=== PATIENT | female | born 1970 | race African-American/Black ===

== ENCOUNTER 2024-08-19 10:44 | Emergency (ER) | payer MEDICAID, OTHER ==
--- NOTE | 2024-08-19 11:31 | ED.PDOC ---
Back pain HPI HPI Comments A 53 YEAR OLD FEMALE PRESENTS TO THE ED WITH COMPLAINT OF RIGHT-SIDED LOWER BACK PAIN. PATIENT STATES SHE HAS BEEN EXPERIENCING RIGHT-SIDED LOWER BACK PAIN THAT RADIATES DOWN HER RIGHT LEG OFF AND ON FOR THE PAST 1 YEAR WITH WORSENING PAIN OVER THE PAST 3 DAYS. PATIENT DENIES SADDLE ANESTHESIA, URINARY INCONTINENCE, BOWEL INCONTINENCE, DYSURIA, HEMATURIA, FEVER, CHILLS, SHORTNESS OF BREATH, CHEST PAIN, ABDOMINAL PAIN, NAUSEA, VOMITING, HEADACHE, OR OTHER COMPLAINTS. NO OTHER SYMPTOMS OR MODIFYING FACTORS AT THIS TIME. PATIENT IS ALERT, ORIENTED X 4, AND HAS STEADY GAIT. Chief Complaint: Back Pain Time Seen by MD: 10:52 Reviewed Notes: Nurses Notes, Medications, Allergies Allergies: Coded Allergies: NO KNOWN ALLERGIES (Unverified , 08/19/24) Home Meds Active Scripts Tramadol HCl (Tramadol HCl) 50 Mg Tab, 50 MG PO TID, #20 TAB Prov:HIRAL MURPHY 08/19/24 Prednisone (Prednisone) 20 Mg Tab, 40 MG PO BID, #20 TAB Prov:HIRAL MURPHY 08/19/24 Information Source: Patient Mode of Arrival: Ambulatory Timing: Days Duration: Since onset, Days Location of Back pain: (B) Lumbar Radiates to: Anterior: (R) Buttocks, (R) Calf, (R) Thigh Radiates to: Posterior: (R) Buttocks, (R) Calf, (R) Thigh Radiates to: Medial: (R) Buttocks, (R) Calf, (R) Thigh Radiates to: Lateral: (R) Buttocks, (R) Calf, (R) Thigh Severity: Moderate Prehospital treatment: None Quality: Aching, Cramping Onset: Spontaneous History of: Chronic Back Pain Modifying Factors: Movement Associated signs and symptoms: None Past Medical History Past Medical History (Other): chronic sciatica Surgical History: Denies all surgeries DRIVER SUPERVISOR History: No Pertinent DRIVER SUPERVISOR History Family History Family History: Reviewed,noncontributory to illness Social History Smoker: Cigarettes Alcohol: Denies ETOH Use Drugs: Denies Drug Use Lives In: Home Constitutional: denies: chills, diaphoresis, fatigue, fever, malaise, sweats, weakness, others EENTM: denies: blurred vision, double vision, ear bleeding, ear discharge, ear drainage, ear pain, ear ringing, eye pain, eye redness, hearing loss, mouth pain, mouth swelling, nasal discharge, nose bleeding, nose congestion, nose pain, photophobia, tearing, throat pain, throat swelling, voice changes, others Respiratory: denies: cough, hemoptysis, orthopnea, SOB at rest, shortness of breath, SOB with excertion, stridor, wheezing, others Cardiovascular: denies: chest pain, dizzy spells, diaphoresis, Dyspnea on exertion, edema, irregular heart beat, left arm pain, lightheadedness, palpitat ions, PND, syncope, others Gastrointestinal: denies: abdomen distended, abdominal pain, blood streaked bow els, constipated, diarrhea, dysphagia, difficulty swallowing, hematemesis, melena, nausea, poor appetite, poor fluid intake, rectal bleeding, rectal pain, vomiting, others Genitourinary: denies: abnormal vagina bleeding, burning, dyspareunia, dysuria, flank pain, frequency, hematuria, incontinence, pain, , vagina discharge, urgency, others Neurological: denies: dizziness, fainting, headache, left sided numbness, left sided weakness, numbness, paresthesia, pre-existing deficit, right sided numbness, right sided weakness, seizure, speech problems, tingling, tremors, weakness, others Musculoskeletal: reports: back pain (LOWER BACK PAIN THAT RADIATES DOWN RIGHT LEG), muscle pain; denies: gout, joint pain, joint swelling, muscle stiffness, neck pain, others Integumetry: denies: bruises, change in color, change in hair/nails, dryness, laceration, lesions, lumps, rash, wounds, others Allergic/Immunocompromised: denies: Difficulty Healing, Frequent Infections, Hives, Itching, others Hematologic/Lymphatic: denies: anemia, blood clots, easy bleeding, easy bruising, swollen glands, others Endocrine: denies: excessive hunger, excessive sweating, excessive thirst, excessive urination, flushing, intolerance to cold, intolerance to heat, unexplained weight gain, unexplained weight loss, others Psychiatric: denies: anxiety, bipolar disorder, depression, hopeless, panic disorder, schizophrenia, sleepless, suicidal, others All Other Systems: Reviewed and Negative Physical Exam General Appearance: No Apparent Distress, Normal HEENT: Normal ENT Inspection, PERRL/EOMI, Pharynx Normal, TMs Normal Neck: Full Range of Motion, Non-Tender, Normal, Normal Inspection Respiratory: Chest Non-Tender, Lungs Clear, No Accessory Muscle Use, No Respiratory Distress, Normal Breath Sounds Cardiovascular: No Edema, No JVD, No Murmur, No Gallop, Normal Peripheral Pulses, Regular Rate/Rhythm Breast Exam: Deferred Gastrointestinal: No Organomegaly, Non Tender, No Pulsatile Mass, Normal Bowel Sounds, Soft Genitalia: Deferred Pelvic: Deferred Rectal: Deferred Extremities: No calf tenderness, Normal capillary refill, Normal inspection, Normal range of motion, Non-tender, No pedal edema Musculoskeletal : Location: Bilateral Extremity Location: Back Apperance: Tenderness (AND MUSCLE TIGHTNESS ON LOWER BACK, NO BONY TENDERNESS, SWELLING AND DEFORMITY. ) Neurologic: Alert, biomedical engineering technician II-XII nml as Tested, No Motor Deficits, Normal Affect, Normal Mood, No Sensory Deficits Cerebellar Function: Normal Reflexes: Normal Skin: Dry, Normal Color, Warm Peripheral Pulses: 2+ carotid (R), 2+ carotid (L), 2+ dorsalis pedis (R), 2+ dorsalis pedis (L) Lymphatic: No Adenopathy Was a procedure done? Was a procedure done?: No Back Pain Differential Dx Differential Diagnosis: DJD, Musculoskeletal Pain, Strain Other Differential Diagnosis DDD, LUMBAR RADCULOPATHY X-Ray, Labs, Meds, VS Vital Signs Date Time Temp Pulse Resp B/P (MAP) Pulse Ox O2 Delivery O2 Flow Rate FiO2 08/19/24 12:03 98.4 66 19 118/71 (87) 100 98.4 08/19/24 12:03 66 19 100 Room Air 08/19/24 10:54 98.3 80 16 116/77 (90) 99 98.3 Current Medications Medications (Trade) Dose Ordered Sig/Ariel Route Start Time Stop Time Status Last Admin Ketorolac Tromethamine (Toradol Injection) 60 mg ONCE ONCE IM 08/19/24 11:30 08/19/24 11:31 DC 08/19/24 12:00 EXAM: XY LUMBAR SPINE 3 VIEW HISTORY: LOW BACK PAIN TO RIGHT LOWER LEG COMPARISON: None TECHNIQUE: AP and lateral views of the lumbar spine were performed. FINDINGS: No fracture or listhesis of the lumbar spine. There is minimal lumbar levoscoliosis. There is mild degenerative disc disease and facet arthropathy. IMPRESSION: Mild degenerative changes of the lumbar spine without evidence of fracture. ATED BY: TATI HANEY MD DICTATED DATE/TIME: 08/19/240 SIGNED BY: TATI HANEY MD SIGNED DATE/TIME: 08/19/240 CC: X-Ray, Labs, Meds, VS Comment EXTERNAL MEDICAL RECORDS REVIEWED: [NONE] INDEPENDENT HISTORIANS: [NONE] SOCIAL DETERMINANTS OF HEALTH: [NONE] LABS ORDERED: NONE REVIEWED AND INTERPRETED RESULTS: NONE IMAGING ORDERED: XR L-SPINE TREATMENTS ORDERED: TORADOL 60MG IM PROCEDURES PERFORMED: NONE CRITICAL CARE TIME: NONE I HAVE DISCUSSED THE PATIENT WITH THE ATTENDING PHYSICIAN DR. POWELL AND HE AGREES WITH THE PATIENT'S PLAN OF CARE AND DISPOSITION. BASED ON HISTORY OF PRESENT ILLNESS, AND PHYSICAL EXAM, PATIENT WILL BE DISCHARGED HOME. DISCUSSED PLAN FOR DISCHARGE HOME WITH RX [ULTRAM]. MEDICATION WARNINGS GIVEN. SHARED DECISION MAKING: PATIENT INSTRUCTED TO FOLLOW UP WITH PRIMARY CARE PROVIDER IN 1-2 DAYS FOR RE-EVALUATION OF SYMPTOMS. PATIENT VERBALIZES UNDERSTANDING TO RETURN TO ED FOR NEW OR WORSENING SYMPTOMS OR IF FOLLOW UP WITH PCP CANNOT BE OBTAINED. PATIENT FEELS COMFORTABLE GOING HOME AT THIS TIME. ALL QUESTIONS ADDRESSED AT TIME OF DISCHARGE. Images Reviewed?: Images reviewed and evaluated by me Time of 1ST Reevaluation: 12:52 Reevaluation 1ST: Improved Patient Education/Counseling: Diagnosis, Treatment, Need For Follow Up Family Education/Counseling: Diagnosis, Treatment, Need For Follow Up Medical Screening: No EMC Exist At This Time SEPSIS Sepsis Screen Physician Orders Lumbar Spine 3 View (08/19/24 11:17) Vital Signs Date Time Temp Pulse Resp B/P (MAP) Pulse Ox O2 Delivery O2 Flow Rate FiO2 08/19/24 12:03 98.4 66 19 118/71 (87) 100 98.4 08/19/24 12:03 66 19 100 Room Air 08/19/24 10:54 98.3 80 16 116/77 (90) 99 98.3 Medications Medications Dose Ordered Sig/Ariel Route Start Time Stop Time Status Last Admin Dose Admin Ketorolac Tromethamine 60 mg ONCE ONCE IM 08/19/24 11:30 08/19/24 11:31 DC 08/19/24 12:00 Departure 1 Departure Time of Disposition: 13:00 Impression: Primary Impression: DDD (degenerative disc disease), lumbar Qualified Codes: M51.362 - Other intervertebral disc degeneration, lumbar region with discogenic back pain and lower extremity pain Additional Impression: Lumbar radiculopathy Disposition: HOME / SELF CARE / HOMELESS Condition: Stable Additional Instructions: FOLLOW-UP WITH PCP IN 1 TO 2 DAYS. TAKE MEDICATIONS PRESCRIBED. RETURN TO ED FOR ANY NEW OR WORSENING SYMPTOMS. e-Prescriptions Tramadol HCl (Tramadol HCl) 50 Mg Tab 50 MG PO TID, #20 TAB Prov: HIRAL MURPHY 08/19/24 Prednisone (Prednisone) 20 Mg Tab 40 MG PO BID, #20 TAB Prov: HIRAL MURPHY 08/19/24 Discharged With: Self Critical Care Note Critical Care Time?: No Stability Stability form required: No I personally scribed for HIRAL MURPHY ([email or web address]) on 08/19/24 at 11:31. Electronically submitted by Juan C Andrews ([email or web address]). I personally scribed for HIRAL MURPHY ([email or web address]) on 08/19/24 at 12:47. Electronically submitted by Juan C Andrews ([email or web address]). HIRAL MURPHY Aug 19, 2024 11:31
[2024-08-19] MEDS: KETOROLAC TROMETH 60MG/2ML VIAL IM ONE (12:00)
[2024-08-19 12:03] VITALS: BP 118/71; PULSE 66; RESP 19; TEMP 98.4; O2SAT 100
--- NOTE | 2024-08-19 12:23 | DVH ---
EXAM: XY LUMBAR SPINE 3 VIEW HISTORY: LOW BACK PAIN TO RIGHT LOWER LEG COMPARISON: None TECHNIQUE: AP and lateral views of the lumbar spine were performed. FINDINGS: No fracture or listhesis of the lumbar spine. There is minimal lumbar levoscoliosis. There is mild degenerative disc disease and facet arthropathy. IMPRESSION: Mild degenerative changes of the lumbar spine without evidence of fracture.
[2024-08-19] MEDS ORDERED: TRAM-626 PO (12:49)
[2024-08-19] MEDS ORDERED: PRED20TA2 PO (12:49)
== END 2024-08-19 12:52 | disposition home or self-care (01) ==
LOC: ER 10:44
DX: M51.372 Other intervertebral disc degeneration, lumbosacral region with discogenic back pain and lower extremity pain (principal); M54.16 Radiculopathy, lumbar region; F17.210 Nicotine dependence, cigarettes, uncomplicated; G89.29 Other chronic pain; Z79.52 Long term (current) use of systemic steroids; Z79.899 Other long term (current) drug therapy
CPT/HCPCS: 72100; 96372; 99283; J1885

== ENCOUNTER 2025-01-24 11:59 | Inpatient (IN) | payer OTHER ==
[~2025-01-24] VITALS: Ht 185.4 cm; Wt 64.0 kg
[~2025-01-24 11:59] MED LIST: PRED20TA2 PO; TRAM-626 PO
--- NOTE | 2025-01-24 12:22 | ED.PDOC ---
History of Present Illness HPI Comments 54-year-old female presents to the ER with prior medical history of chronic sciatica: Surgical history of left knee surgery and a chief complaint of abdominal pain. Patient reports on having had right lower quadrant pain which radiates to the back associated with posterior right shoulder pain since Thursday of 01/20/2025. Denies any other symptoms at this time. Denies chills, fever, N/V/D, SOB, CP. No other associated symptoms, modifiers, recent injuries or sick contacts present at this time. Chief Complaint: Abdominal Pain Time Seen by MD: 12:15 Reviewed Notes: Nurses Notes, Medications, Allergies Allergies: Coded Allergies: NO KNOWN ALLERGIES (Unverified , 08/19/24) Home Meds Active Scripts Tramadol HCl (Tramadol HCl) 50 Mg Tab, 50 MG PO TID, #20 TAB Prov:HIRAL MURPHY 08/19/24 Prednisone (Prednisone) 20 Mg Tab, 40 MG PO BID, #20 TAB Prov:HIRAL MURPHY 08/19/24 Information Source: Patient Mode of Arrival: Ambulatory Severity: Moderate Timing: Days Duration: Since onset, Days Prehospital treatment: None Past Medical History Past Medical History (Other): Chronic sciatica Surgical History (Other): Left knee surgery GROUNDWATER PROGRAMS DIRECTOR History: No Pertinent GROUNDWATER PROGRAMS DIRECTOR History Family History Family History: Reviewed,noncontributory to illness Social History Smoker: Cigarettes Alcohol: Occasionally Drugs: Denies Drug Use Lives In: Home Constitutional: denies: chills, diaphoresis, fatigue, fever, malaise, sweats, weakness, others EENTM: denies: blurred vision, double vision, ear bleeding, ear discharge, ear drainage, ear pain, ear ringing, eye pain, eye redness, hearing loss, mouth pain, mouth swelling, nasal discharge, nose bleeding, nose congestion, nose pain, photophobia, tearing, throat pain, throat swelling, voice changes, others Respiratory: denies: cough, hemoptysis, orthopnea, SOB at rest, shortness of breath, SOB with excertion, stridor, wheezing, others Cardiovascular: denies: chest pain, dizzy spells, diaphoresis, Dyspnea on exertion, edema, irregular heart beat, left arm pain, lightheadedness, palpitations, PND, syncope, others Gastrointestinal: reports: abdominal pain; denies: abdomen distended, blood streaked bowels, constipated, diarrhea, dysphagia, difficulty swallowing, hematemesis, melena, nausea, poor appetite, poor fluid intake, rectal bleeding, rectal pain, vomiting, others Genitourinary: denies: abnormal vagina bleeding, burning, dyspareunia, dysuria, flank pain, frequency, hematuria, incontinence, pain, , vagina discharge, urgency, others Neurological: denies: dizziness, fainting, headache, left sided numbness, left sided weakness, numbness, paresthesia, pre-existing deficit, right sided numbness, right sided weakness, seizure, speech problems, tingling, tremors, weakness, others Musculoskeletal: reports: back pain; denies: gout, joint pain, joint swelling, muscle pain, muscle stiffness, neck pain, others Integumetry: denies: bruises, change in color, change in hair/nails, dryness, laceration, lesions, lumps, rash, wounds, others Allergic/Immunocompromised: denies: Difficulty Healing, Frequent Infections, Hives, Itching, others Hematologic/Lymphatic: denies: anemia, blood clots, easy bleeding, easy bruising, swollen glands, others Endocrine: denies: excessive hunger, excessive sweating, excessive thirst, excessive urination, flushing, intolerance to cold, intolerance to heat, unexplained weight gain, unexplained weight loss, others Psychiatric: denies: anxiety, bipolar disorder, depression, hopeless, panic disorder, schizophrenia, sleepless, suicidal, others All Other Systems: Reviewed and Negative Physical Exam General Appearance: Moderate Distress HEENT: Normal ENT Inspection, Pharynx Normal, TMs Normal Neck: Full Range of Motion, Non-Tender, Normal, Normal Inspection Respiratory: Chest Non-Tender, Lungs Clear, No Accessory Muscle Use, No Respiratory Distress, Normal Breath Sounds Cardiovascular: No Edema, No JVD, No Murmur, No Gallop, Normal Peripheral Pulses, Regular Rate/Rhythm Breast Exam: Deferred Gastrointestinal: No Organomegaly, No Pulsatile Mass, Normal Bowel Sounds, RLQ, RUQ, Soft, Tenderness Genitalia: Deferred Pelvic: Deferred Rectal: Deferred Extremities: No calf tenderness, Normal capillary refill, Normal inspection, Normal range of motion, Non-tender, No pedal edema Musculoskeletal : Apperance: Normal Neurologic: Alert, spooler rubber strand II-XII nml as Tested, Motor Weakness, Normal Affect, Normal Mood, No Sensory Deficits Cerebellar Function: Normal Reflexes: Normal Skin: Dry, Normal Color, Warm Lymphatic: No Adenopathy Was a procedure done? Was a procedure done?: No Differential Dx Considerations may include: Cholecystitis, cholelithiasis, gastritis, bowel obstruction X-Ray, Labs, Meds, VS Vital Signs Date Time Temp Pulse Resp B/P (MAP) Pulse Ox O2 Delivery O2 Flow Rate FiO2 01/24/25 13:34 98.2 101 18 115/68 (84) 94 98.2 01/24/25 12:02 98.0 97 16 115/73 98 98.0 Lab Test 01/24/25 13:11 01/24/25 12:48 Range/Units Urine Color Yellow Yellow Urine Clarity Turbid H Clear Urine pH 5.5 5.0-9.0 Urine Specific [place] 1.014 1.001-1.035 Urine Protein Negative Negative Urine Ketones Negative Negative Urine Blood Negative Negative /uL Urine Nitrite Negative Negative Urine Bilirubin Negative Negative Urine Urobilinogen Normal Negative mg/dL Urine Leukocyte Esterase Negative Negative /uL Urine RBC 1 0 - 4 /hpf Urine Microscopic WBC 2 0-5 /HPF Urine Squamous Epithelial Cells Mod <5 /hpf Urine Bacteria Few H None Seen /hpf Urine Glucose Normal Normal mg/dL White Blood Count 4.9 4.4-10.8 10^3/uL Red Blood Count 4.20 4.0-5.20 10^6/uL Hemoglobin 12.2 12.2-16.2 g/dL Hematocrit 36.6 36.0-46.0 % Mean Corpuscular Volume 87.0 80.0-100.0 fL Mean Corpuscular Hemoglobin 29.1 28.0-32.0 pg Mean Corpuscular Hemoglobin Concent 33.4 32.0-36.0 g/dL Red Cell Distribution Width 14.8 H 11.8-14.3 % Platelet Count 293 140-450 10^3/uL Mean Platelet Volume 7.0 6.9-10.8 fL Neutrophils (%) (Auto) 40.8 37.0-80.0 % Lymphocytes (%) (Auto) 50.5 H 10.0-50.0 % Monocytes (%) (Auto) 4.4 0.0-12.0 % Eosinophils (%) (Auto) 1.4 0.0-7.0 % Basophils (%) (Auto) 2.9 H 0.0-2.0 % Neutrophils # (Auto) 2.0 1.6-8.6 10 ^3/uL Lymphocytes # (Auto) 2.4 0.4-5.4 10 ^3/uL Monocytes # (Auto) 0.2 0-1.3 10 ^3/uL Eosinophils # (Auto) 0.1 0-0.8 10 ^3/uL Basophils # (Auto) 0.1 0-0.2 10 ^3/uL Nucleated Red Blood Cells 0.1 % Sodium Level 141 136-145 mmol/L Potassium Level 4.0 3.5-5.1 mmol/L Chloride Level 108 H 98-107 mmol/L Carbon Dioxide Level 25 20-31 mmol/L Anion Gap 8 5-15 Blood Urea Nitrogen 6 L 9-23 mg/dL Creatinine 0.84 0.550-1.02 mg/dL Glomerular Filtration Rate Calc 84 >90 mL/min BUN/Creatinine Ratio 7.1 L 10.0-20.0 Serum Glucose 73 L 74-106 mg/dL Calcium Level 9.4 8.7-10.4 mg/dL Total Bilirubin 0.3 0.2-1.0 mg/dL Aspartate Amino Transferase (AST) 29 13-40 U/L Alanine Aminotransferase (ALT) 23 7-40 U/L Alkaline Phosphatase 62 46-116 U/L Total Protein 7.0 5.7-8.2 g/dL Albumin 4.3 3.2-4.8 g/dL Lipase 38 12-53 U/L The patient's CBC is within normal limits The chemistry panel is within normal limits. At this time, the urine test is negative The CAT scan of the abdomen and pelvis shows: IMPRESSION: 1. No hydronephrosis or nephroureterolithiasis. 2. Air-fluid levels within the ascending to transverse colon. 3. Correlate with clinical exam to exclude colitis. 4. Extensive subchondral cystic change of the qjyrq-hcfgfka-cylo-left hip joints primarily involving the right femoral head. We still do not have a reason for this patient is significant abdominal pain The patient will be admitted at this time Images Reviewed?: Images reviewed and evaluated by me Time of 1ST Reevaluation: 12:45 Reevaluation 1ST: Unchanged Patient Education/Counseling: Diagnosis, Treatment, Prognosis Family Education/Counseling: No Family Present SEPSIS Sepsis Screen Date sepsis recognized/suspect: Jan 24, 2025 Time Sepsis recognized/suspect: 1205 Recent Procedure: No On Antibiotic Therapy: No Respiratory Rate >20: No Heart Rate >90: Yes Temp<36 C (96.8 F) or >38.3 C: No SBP <90 or MAP <65 mmHG: No New Acute Mental Status Change: No Is the patient on CPAP, BIPAP,: No Physician Orders Ct Ab Pel Wo Con-No Oral Or Iv (01/24/25 12:19) Vital Signs Date Time Temp Pulse Resp B/P (MAP) Pulse Ox O2 Delivery O2 Flow Rate FiO2 01/24/25 13:34 98.2 101 18 115/68 (84) 94 98.2 01/24/25 12:02 98.0 97 16 115/73 98 98.0 Laboratory Tests Test 01/24/25 12:48 White Blood Count 4.9 10^3/uL (4.4-10.8) Departure 1 Departure Time of Disposition: 15:45 Impression: Primary Impression: Intractable abdominal pain Additional Impression: Abdominal pain of unknown etiology Disposition: 09 ADMITTED INPATIENT Admit to: Med Surg Condition: Fair Critical Care Note Critical Care Time?: No Stability Stability form required: Yes Unstable for transfer: ED Physician Assesment (Clinical assesment) Heart Score Heart Score: Heart Score Response (Comments) Value History N/A 0 EKG N/A 0 Age N/A 0 Risk Factors N/A 0 Troponin N/A 0 Total 0 I personally scribed for DAMARIS LIRA MD ([email or web address]) on 01/24/25 at 12:21. Electronically submitted by Kirk Dior ([email or web address]). DAMARIS LIRA MD Jan 24, 2025 12:21
[2025-01-24 13:00] LABS: Hematocrit 36.6 % (36.0-46.0); Hemoglobin 12.2 g/dL (12.2-16.2); Mean Corpuscular Hemoglobin 29.1 pg (28.0-32.0); Mean Corpuscular Volume 87.0 fL (80.0-100.0); Nucleated Red Blood Cells % 0.1 %
[2025-01-24 13:15] LABS: Alanine Aminotransferase 23 U/L (7-40); Albumin 4.3 g/dL (3.2-4.8); Alkaline Phosphatase 62 U/L (46-116); Anion Gap 8 (5-15); BUN/Creatinine Ratio 7.1 (10.0-20.0); Bilirubin, Total 0.3 mg/dL (0.2-1.0); Calcium 9.4 mg/dL (8.7-10.4); Carbon Dioxide 25 mmol/L (20-31); Potassium 4.0 mmol/L (3.5-5.1); Sodium 141 mmol/L (136-145); Total Protein 7.0 g/dL (5.7-8.2)
[2025-01-24 13:20] LABS: Blood Urea Nitrogen 6 mg/dL (9-23); Chloride 108 mmol/L (98-107); Glucose 73 mg/dL (74-106)
[2025-01-24 13:34] LABS: Lipase 38 U/L (12-53)
[2025-01-24 13:35] LABS: Urine Protein, UAD Negative (Negative)
--- NOTE | 2025-01-24 13:43 | DVH ---
EXAM: CT CT AB PEL WO CON-NO ORAL OR IV INDICATION: right sided pain TECHNIQUE: Volumetric multidetector CT images of the abdomen and pelvis were obtained without contrast. All CT scans at this facility use dose modulation, iterative reconstruction, and/or weight based dosing when appropriate to reduce radiation dose to as low as reasonably achievable. COMPARISON: None FINDINGS: [LOWER CHEST]: The partially visualized lung bases are clear without a pleural effusion. The cardiac size is normal without pericardial effusion. [LIVER]: Normal hepatic size without suspicious focal lesion. [GALLBLADDER AND BILIARY TREE]: No cholelithiasis. [SPLEEN]: Unremarkable. [PANCREAS]: Unremarkable. [ADRENAL GLANDS]: Unremarkable [KIDNEYS]: No hydronephrosis. No nephroureterolithiasis. No suspicious focal lesion. [BLADDER]: Unremarkable for the degree distention. [REPRODUCTIVE ORGANS]: Unremarkable. [BOWEL/MESENTERY]: Stomach is normal. Normal appendix measuring 0.4 cm. Air- fluid levels within the ascending to transverse colon. Correlate with clinical exam to exclude colitis. No CT evidence of bowel obstruction. [ASCITES]: Trace pelvic ascites. [LYMPHADENOPATHY]: No pathologically enlarged lymph nodes by CT size criteria [VASCULATURE]: No aneurysmal dilatation. [ABDOMINAL WALL]: Unremarkable. [MUSCULOSKELETAL]: No acute fracture or aggressive focal osseous lesion. Extensive subchondral cystic change of the tlban-jibkbgz-wmhu-left hip joints primarily involving the right femoral head. IMPRESSION: 1. No hydronephrosis or nephroureterolithiasis. 2. Air-fluid levels within the ascending to transverse colon. 3. Correlate with clinical exam to exclude colitis. 4. Extensive subchondral cystic change of the uainq-fydfivl-gpgi-left hip joints primarily involving the right femoral head.
[2025-01-24] MEDS ORDERED: DOCUSATE SOD 100 MG CAP PO PRN (16:00)
[2025-01-24] MEDS ORDERED: ONDANSETRON HCL 4 MG/2 ML VIAL IV PRN (16:00)
[2025-01-24] MEDS ORDERED: MORPHINE SULFATE 4 MG/ML SYR/VIAL IV PRN (16:15)
--- NOTE | 2025-01-24 16:19 | DVHHPRES ---
History of Present Illness Resident Creating Document: LISBETH SADLER RESIDENT History of Present Illness Jackie Rosenbaum, A 54-year-old active smoker female with a history of chronic sciatica and prior left knee surgery presents ambulatory to the ER with moderate right lower quadrant abdominal pain radiating to the back and posterior right shoulder since 01/20/2025, denies fever, chills, nausea, vomiting, diarrhea, chest pain, shortness of breath, recent injuries, or sick contacts. PMHx: Chronic sciatica, osteoarthritis PSHx: Left knee surgery, arthroplasty Family history: Reviewed, noncontributory to illness Social history: Patient smokes cigarettes, drinks alcohol occasionally, denies illicit drug use, and lives at home. OBGYN Hx: postmenopausal, otherwise insignificant, noncontributory to the illness likely. Review of Systems Constitutional: Yes: Chills; No: Fever, Sweats, Weakness, Malaise, Other Eyes: No: Pain, Vision change, Conjunctivae inflammation, Eyelid inflammation, Other, Redness ENT: No: Ear pain, Ear discharge, Nose pain, Nose discharge, Nose congestion, Mouth pain, Mouth swelling, Throat pain, Throat swelling, Other Respiratory: No: Cough, Dry, Shortness of breath, SOB with excertion, Wheezing, Hemoptysis, Pleuritic Pain, Sputum, Wheezing, Other Cardiovascular: No: Chest Pain, Palpitations, Orthopnea, Paroxysmal Noc. Dyspnea, Edema, Lt Headedness, Other Gastrointestinal: Nausea, Abdominal Pain, Constipation; No: Vomiting, Diarrhea, Melena, Hematochezia, Other Genitourinary: No Dysuria, No Frequency, No Incontinence, No Hematuria, No Retention, No Other Musculoskeletal: No: other, neck pain, shoulder pain, arm pain, back pain, hand pain, leg pain, foot pain Skin: No: Rash, Lesions, Jaundice, Bruising, Other Neurological: No: Weakness, Numbness, Incoordination, Change in speech, Confusion, Seizures, Other Allergies: Coded Allergies: NO KNOWN ALLERGIES (Unverified , 08/19/24) Medications Current Medications Medications Dose Ordered Sig/Ariel Route Start Time Stop Time Status Last Admin Dose Admin Acetaminophen/ Hydrocodone Bitart 1 tab Q4HP PRN PO 01/24/25 16:00 Ondansetron HCl 4 mg Q4HP PRN IV 01/24/25 16:00 Docusate Sodium 100 mg BIDPRN PRN PO 01/24/25 16:00 Acetaminophen 650 mg Q6HP PRN PO 01/24/25 16:00 Morphine Sulfate 2 mg Q4HPRN PRN IV 01/24/25 16:15 Exam Vital Signs Vital Signs Date Time Temp Pulse Resp B/P (MAP) Pulse Ox O2 Delivery O2 Flow Rate FiO2 01/24/25 16:14 98.0 98 18 115/72 (86) 96 98.0 General Appearance: Alert, Oriented X3, Cooperative, moderate distress HEENT: Atraumatic, PERRLA, EOMI, Other (dry mucosa) Respiratory: Clear to auscultation, Normal air movement Cardiovascular: Regular rate, Normal S1, Normal S2, No murmurs Abdominal: Soft, No masses, Other (slow transit BS, right and left Lower quadrents tender. no cardboard rigidity, tympanic abdomen. ) Extremities: No clubbing, No cyanosis, No edema, Normal pulses, No tenderness/swelling Skin: No rashes, No breakdown, No significant lesion Neuro: Normal speech, Strength at 5/5 X4 ext, Normal tone, Sensation intact, Cranial nerves 3-12 NL, Other (deferred gait and reflex testing. ) Psych/Mental Status: Mental status NL, Mood NL Labs/Xrays Labs Test 01/24/25 13:11 01/24/25 12:48 Range/Units Urine Color Yellow Yellow Urine Clarity Turbid H Clear Urine pH 5.5 5.0-9.0 Urine Specific [place] 1.014 1.001-1.035 Urine Protein Negative Negative Urine Ketones Negative Negative Urine Blood Negative Negative /uL Urine Nitrite Negative Negative Urine Bilirubin Negative Negative Urine Urobilinogen Normal Negative mg/dL Urine Leukocyte Esterase Negative Negative /uL Urine RBC 1 0 - 4 /hpf Urine Microscopic WBC 2 0-5 /HPF Urine Squamous Epithelial Cells Mod <5 /hpf Urine Bacteria Few H None Seen /hpf Urine Glucose Normal Normal mg/dL White Blood Count 4.9 4.4-10.8 10^3/uL Red Blood Count 4.20 4.0-5.20 10^6/uL Hemoglobin 12.2 12.2-16.2 g/dL Hematocrit 36.6 36.0-46.0 % Mean Corpuscular Volume 87.0 80.0-100.0 fL Mean Corpuscular Hemoglobin 29.1 28.0-32.0 pg Mean Corpuscular Hemoglobin Concent 33.4 32.0-36.0 g/dL Red Cell Distribution Width 14.8 H 11.8-14.3 % Platelet Count 293 140-450 10^3/uL Mean Platelet Volume 7.0 6.9-10.8 fL Neutrophils (%) (Auto) 40.8 37.0-80.0 % Lymphocytes (%) (Auto) 50.5 H 10.0-50.0 % Monocytes (%) (Auto) 4.4 0.0-12.0 % Eosinophils (%) (Auto) 1.4 0.0-7.0 % Basophils (%) (Auto) 2.9 H 0.0-2.0 % Neutrophils # (Auto) 2.0 1.6-8.6 10 ^3/uL Lymphocytes # (Auto) 2.4 0.4-5.4 10 ^3/uL Monocytes # (Auto) 0.2 0-1.3 10 ^3/uL Eosinophils # (Auto) 0.1 0-0.8 10 ^3/uL Basophils # (Auto) 0.1 0-0.2 10 ^3/uL Nucleated Red Blood Cells 0.1 % Sodium Level 141 136-145 mmol/L Potassium Level 4.0 3.5-5.1 mmol/L Chloride Level 108 H 98-107 mmol/L Carbon Dioxide Level 25 20-31 mmol/L Anion Gap 8 5-15 Blood Urea Nitrogen 6 L 9-23 mg/dL Creatinine 0.84 0.550-1.02 mg/dL Glomerular Filtration Rate Calc 84 >90 mL/min BUN/Creatinine Ratio 7.1 L 10.0-20.0 Serum Glucose 73 L 74-106 mg/dL Calcium Level 9.4 8.7-10.4 mg/dL SEPSIS Sepsis Screen Date sepsis recognized/suspect: Jan 24, 2025 Time Sepsis recognized/suspect: 1343 Recent Procedure: No On Antibiotic Therapy: No Respiratory Rate >20: No Heart Rate >90: No Temp<36 C (96.8 F) or >38.3 C: No SBP <90 or MAP <65 mmHG: No New Acute Mental Status Change: No Is the patient on CPAP, BIPAP,: No Physician Orders Ct Ab Pel Wo Con-No Oral Or Iv (01/24/25 12:19) Heplock Iv (01/24/25 ) Admit (01/24/25 15:56) Allergies (01/24/25 15:56) Code Status (01/24/25 15:56) Hydrocodone-Acet 5/325mg Tab ([place] 5/32 (01/24/25 16:00) Ondansetron Hcl (Zofran) (01/24/25 16:00) Docusate Sodium Capsule (Colace Capsule) (01/24/25 16:00) Complete Blood Count (01/25/25 04:00) Comprehensive Metabolic Panel (01/25/25 04:00) Npo (Nothing By Mouth) Diet (01/24/25 Dinner) Condition: Serious (01/24/25 15:56) Acetaminophen Tablet (Tylenol Tablet) (01/24/25 16:00) Bedrest With Bathroom Privileg (01/24/25 15:56) Bedside Commode (01/24/25 15:56) Clostridium Difficile Toxin (01/24/25 15:56) Ova & Parasite Exam (01/24/25 15:56) Stool Bacterial Culture (01/24/25 15:56) Stool Occult Blood (01/24/25 15:56) Gram Stain (01/24/25 15:56) Stool Wbc (01/24/25 15:56) Hepatic Panel (01/24/25 15:56) Blood Culture (01/24/25 15:56) Lipase (01/24/25 15:56) Lactic Acid W/ Reflex Order (01/24/25 15:56) Thyroid Stimulating Hormone (01/24/25 15:56) Lactated Ringer's (01/24/25 16:00) Piperacillin-Tazob 3.375gm (Zosyn 3.375g (01/24/25 16:00) Morphine Sulfate Injection (01/24/25 16:15) Vital Signs Date Time Temp Pulse Resp B/P (MAP) Pulse Ox O2 Delivery O2 Flow Rate FiO2 01/24/25 16:14 98.0 98 18 115/72 (86) 96 98.0 01/24/25 13:34 98.2 101 18 115/68 (84) 94 98.2 01/24/25 12:02 98.0 97 16 115/73 98 98.0 Laboratory Tests Test 01/24/25 12:48 White Blood Count 4.9 10^3/uL (4.4-10.8) Assessment/Plan Assessment/Plan #acute colitis: Likely secondary due to gram negatives and anaerobes, presented with acute abdominal pain, labs unremarkable, Likely infectious, do not have colonoscopy on file, age-appropriate colonoscopy to follow up, no significant GI cancer history but patient is active smoker. IV Zosyn to continue for now, NPO, IV fluid to continue, stool panel pending. If CEA is elevated consider CT abdomen with contrast. #acute on chronic constipation: Could be multi factorial, correct electrolytes, CT shows Air-fluid levels within the ascending to transverse colon. bowel rest, pain nausea vomiting Symptomatic management. secondary causes of bowel obstruction unlikely. home docusate to continue, add lactulose. #Active nicotine abuse: smokin+ pack-year smoking history, 14 nicotine patch, daily, smoking cessation counseling done at bedside for 11 minutes. pro #Chronic sciatica: not showing active neurovascular compromise at this time, continue home medications and physical therapy. Home medications include Lidocaine patch, Naprosyn and cyclobenzaprine. Continue as tolerated. #mild hypoglycemia: Asymptomatic, BG 73 lowest BG noted, IV fluid to continue with LR. PUD prophylaxis: protonix 40mg IV daily DVT prophylaxis: Lovenox 40mg/brisk movement. Barriers to discharge: Medical diagnosis and management in progress. Patient lives with self / family. Independent/need suppo 0 rtive device/wheel chair/person support for ADL. PT and SW consult as needed. PCP: [facility] Specialist Relevant To Admission: Gastroenterology, no need of inpatient consult. Case discussed with Dr. Zimmerman Code Status: Full Code. Discussion for goals of care and care plan needed total 29 minutes bedside. Plan discussed with: Patient My Orders Orders - LISBETH SADLER RESIDENT Procedure Category Date Status Time Admit ADMIT 01/24/25 Transmitted 15:56 Allergies JURGEN 01/24/25 In Process 15:56 Code Status CODE 01/24/25 Transmitted 15:56 Hydrocodone-Acet PHA 01/24/25 In Process 5/325mg Tab ([place] 16:00 Ondansetron Hcl PHA 01/24/25 In Process (Zofran) 16:00 Docusate Sodium PHA 01/24/25 In Process Capsule (Colace 16:00 Complete Blood Count LAB 01/25/25 Verified 04:00 Comprehensive LAB 01/25/25 Verified Metabolic Panel 04:00 Npo (Nothing By DIET 01/24/25 Transmitted Mouth) Diet Dinner Condition: Serious JURGEN 01/24/25 In Process 15:56 Acetaminophen Tablet PHA 01/24/25 In Process (Tylenol Tablet) 16:00 Bedrest With Bathroom JURGEN 01/24/25 In Process Privileg 15:56 Bedside Commode JURGEN 01/24/25 In Process 15:56 Clostridium Difficile KIKE 01/24/25 Logged Toxin 15:56 Ova & Parasite Exam KIKE 01/24/25 Logged 15:56 Stool Bacterial KIKE 01/24/25 Logged Culture 15:56 Stool Occult Blood LAB 01/24/25 Logged 15:56 Gram Stain KIKE 01/24/25 Logged 15:56 Stool Wbc LAB 01/24/25 Logged 15:56 Hepatic Panel LAB 01/24/25 In Process 15:56 Blood Culture KIKE 01/24/25 Logged 15:56 Lipase LAB 01/24/25 In Process 15:56 Lactic Acid W/ Reflex LAB 01/24/25 Logged Order 15:56 Thyroid Stimulating LAB 01/24/25 In Process Hormone 15:56 Lactated Ringer's PHA 01/24/25 In Process 16:00 Piperacillin-Tazob PHA 01/24/25 In Process 3.375gm (Zosyn 3.375g 16:00 Morphine Sulfate PHA 01/24/25 In Process Injection 16:15 Date of Service: Jan 24, 2025 Billing Provider: CHLOE ZIMMERMAN MD Common Visit Codes: [id number] INP/OBS CARE (HIGH) Secondary Visit Codes: [id number] CARE PLAN 30 MINUTES LISBETH SADLER RESIDENT Jan 24, 2025 16:19
[2025-01-24] MEDS: MORPHINE SULFATE 4 MG/ML SYR/VIAL IV ONE (16:28)
[2025-01-24] MEDS: ONDANSETRON HCL 4 MG/2 ML VIAL IV ONE (16:28)
[2025-01-24 16:34] LABS: Alanine Aminotransferase 24.0 U/L (7-40); Albumin 4.3 g/dL (3.2-4.8); Alkaline Phosphatase 62.0 U/L (46-116); Bilirubin, Total 0.3 mg/dL (0.2-1.0); Lipase 38.0 U/L (12-53); Total Protein 7.1 g/dL (5.7-8.2)
[2025-01-24 16:51] LABS: Bilirubin, Direct 0.1 mg/dL (<0.3)
[2025-01-24] MEDS: PIPERACILLIN-TAZOB 3.375GM 100 ML IV ONE (17:17)
[2025-01-24] MEDS: LACTATED RINGER'S 1,000 ML IV ONE (17:20)
[2025-01-24] MEDS ORDERED: CYCLOBENZAPRINE HCL 10 MG TAB PO PRN (17:45)
[2025-01-24] MEDS: NICOTINE 14 MG/24HR TOPICAL PATCH TD SCH (17:56)
[2025-01-24 18:00] VITALS: BP 104/63; PULSE 66; RESP 16; TEMP 97.7; O2SAT 97
[2025-01-24] MEDS: ENOXAPARIN SOD 40 MG/0.4 ML SYRINGE SC ONE (18:09)
[2025-01-24] MEDS: PANTOPRAZOLE 40 MG/10 ML VIAL INJ IV ONE (18:09)
[2025-01-24 20:00] VITALS: PULSE 60; RESP 18; O2SAT 97
[2025-01-24] MEDS: LIDOCAINE 5% TOPICAL PATCH TOP SCH (20:52)
[2025-01-24] MEDS: PIPERACILLIN-TAZOB 3.375GM 100 ML IV SCH (21:19)
[2025-01-24] MEDS: DOCUSATE SOD 100 MG CAP PO SCH (21:40)
[2025-01-25] VITALS (8 sets, daily range): BP systolic 95–120; BP diastolic 58–87; PULSE 59–72; RESP 16–18; TEMP 97.1–99.2; O2SAT 97–100
[2025-01-25 06:00] LABS: Hematocrit 37.9 % (36.0-46.0); Hemoglobin 12.5 g/dL (12.2-16.2); Mean Corpuscular Hemoglobin 28.9 pg (28.0-32.0); Mean Corpuscular Volume 87.4 fL (80.0-100.0); Nucleated Red Blood Cells % 0.0 %
[2025-01-25 06:33] LABS: Alanine Aminotransferase 20 U/L (7-40); Albumin 3.8 g/dL (3.2-4.8); Alkaline Phosphatase 55 U/L (46-116); Anion Gap 5 (5-15); BUN/Creatinine Ratio 7.1 (10.0-20.0); Calcium 9.2 mg/dL (8.7-10.4); Carbon Dioxide 29 mmol/L (20-31); Chloride 106 mmol/L (98-107); Glucose 77 mg/dL (74-106); Potassium 4.4 mmol/L (3.5-5.1); Sodium 140 mmol/L (136-145); Total Protein 6.5 g/dL (5.7-8.2)
[2025-01-25 06:34] LABS: Bilirubin, Total 0.5 mg/dL (0.2-1.0); Blood Urea Nitrogen 6 mg/dL (9-23)
[2025-01-25] MEDS: PANTOPRAZOLE 40 MG/10 ML VIAL INJ IV SCH (08:55)
--- NOTE | 2025-01-25 11:54 | DVH ---
Right HIP RADIOGRAPH. CLINICAL INDICATION: right hip pain after trauma TECHNIQUE: 3 views of the right hip were obtained. FINDINGS: There is no evidence of fracture, subluxation or dislocation. Moderate right hip osteoarthritis. The bony mineralization is normal.No radiopaque foreign body is identified. IMPRESSION: 1. No evidence of acute bony injury.
--- NOTE | 2025-01-25 12:08 | DVH ---
EXAM: XY R ANKLE 2 VIEW XRAY CLINICAL INDICATION: possible fracture and pain TECHNIQUE: XY R ANKLE 2 VIEW XRAY COMPARISON: None FINDINGS/IMPRESSION: Partial visualization of a fracture of the base of the 5th metatarsal. Dedicated foot x-rays recommended.
[2025-01-25 13:08] LABS: Hepatitis C Antibody Negative (Negative)
[2025-01-25] MEDS: ACETAMINOPHEN 325 MG TAB PO PRN (13:49)
--- NOTE | 2025-01-25 16:22 | DVH ---
CLINICAL INDICATION: Possible fracture TECHNIQUE: 2 radiographic views of the right foot were obtained. COMPARISON: None FINDINGS/IMPRESSION: Irregularity of the base of the 5th metatarsal is noted. This appears to be a fracture age indeterminate. Correlate for tenderness over this area.
[2025-01-25] MEDS: ENOXAPARIN SOD 40 MG/0.4 ML SYRINGE SC SCH (18:03)
[2025-01-25] MEDS: HYDROcodone-ACET 5/325MG TAB PO PRN (18:05)
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
[2025-01-26 00:41] VITALS: BP 105/79; PULSE 60; RESP 18; TEMP 97.7; O2SAT 100
[2025-01-26 05:00] VITALS: BP 114/80; PULSE 66; RESP 20; TEMP 98; O2SAT 96
[2025-01-26 06:41] LABS: Hematocrit 35.7 % (36.0-46.0); Hemoglobin 12.0 g/dL (12.2-16.2); Mean Corpuscular Hemoglobin 29.1 pg (28.0-32.0); Mean Corpuscular Volume 87.1 fL (80.0-100.0); Nucleated Red Blood Cells % 0.1 %
[2025-01-26 06:58] LABS: Anion Gap 4 (5-15); Calcium 8.9 mg/dL (8.7-10.4); Carbon Dioxide 29 mmol/L (20-31); Chloride 106 mmol/L (98-107); Potassium 4.1 mmol/L (3.5-5.1); Sodium 139 mmol/L (136-145)
[2025-01-26 07:04] LABS: BUN/Creatinine Ratio 6.3 (10.0-20.0); Glucose 79 mg/dL (74-106)
[2025-01-26 07:05] LABS: Blood Urea Nitrogen 5 mg/dL (9-23)
[2025-01-26 08:30] VITALS: BP 130/73; PULSE 66; RESP 20; TEMP 98.1; O2SAT 97
[2025-01-26 11:48] VITALS: BP 130/73; PULSE 66; RESP 20; TEMP 36.7
[2025-01-26 12:13] VITALS: BP 117/84; PULSE 62; RESP 18; TEMP 98.1; O2SAT 97
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
== END 2025-01-26 12:18 | disposition home or self-care (01) | DRG 342 ==
LOC: ER 11:59 → OVERFLOW 15:56 → WEST WING 16:54
PROVIDERS: ADMIT Internal Medicine Geriatric Medicine; ATTEND Internal Medicine Geriatric Medicine
DX: S92.351A Displaced fracture of fifth metatarsal bone, right foot, initial encounter for closed fracture (principal); E16.2 Hypoglycemia, unspecified; F12.10 Cannabis abuse, uncomplicated; K52.9 Noninfective gastroenteritis and colitis, unspecified; M54.30 Sciatica, unspecified side; K59.01 Slow transit constipation; R63.0 Anorexia; F17.210 Nicotine dependence, cigarettes, uncomplicated; S70.01XA Contusion of right hip, initial encounter; X58.XXXA Exposure to other specified factors, initial encounter; Y93.89 Activity, other specified; Y92.89 Other specified places as the place of occurrence of the external cause; Y99.8 Other external cause status; Z71.6 Tobacco abuse counseling; Z68.1 Body mass index [BMI] 19.9 or less, adult
CPT/HCPCS: 36415; 73502; 73600; 73620; 74176; 80048; 80053; 80076; 81001; 82270; 82378; 83605; 83690; 84443; 85025; 85048; 86706; 86803; 87040; 87045; 87177; 87205; 87427; 87493; 96365; G0378; J2405; J2470; J2543